=== PATIENT | female | born 1970 | race Caucasian/White ===

== ENCOUNTER 2017-04-25 06:56 | Day surgery (SDC) | payer OTHER ==
[2017-04-25] VITALS (8 sets, daily range): BP systolic 100–110; BP diastolic 6–60; PULSE 59–69; RESP 12–14; O2SAT 93–99
[~2017-04-25] VITALS: Ht 160 cm; Wt 81.6 kg
[~2017-04-25 06:56] MED LIST: ALBU18HF INH; ARIP10TA14 PO; ATEN50TA PO; BUSP15TA3 PO; CITA40TA13 PO; FLUT16SP NS; IBUP200C11 PO; LAMO200T2 PO; LEVO25TA5 PO; LIT150 PO; LOVA40TA PO; NAM10 PO; OMEP20TA86 PO; PRAM0.252 PO
[2017-04-25] MEDS ORDERED: fentaNYL-PF 50 mCg/mL 2 mL Inj ONE (06:57)
[2017-04-25] MEDS ORDERED: EPHEDrine/NS 5 mg/mL 5 mL Syringe ONE (06:57)
[2017-04-25] MEDS ORDERED: Dexamethasone 4 mg/mL Inj ONE (06:57)
[2017-04-25] MEDS ORDERED: Ondansetron 2 mg/mL 2 mL Inj ONE (06:57)
[2017-04-25] MEDS ORDERED: Propofol 10,000 mCg/mL 20 mL Inj ONE (06:57)
[2017-04-25] MEDS: Lactated Ringer's 1,000 ML IV SCH ×2 (07:14→08:00)
[2017-04-25] MEDS ORDERED: HYDROcodone-APAP 7.5-325 mg Tablet PO PRN (07:25)
[2017-04-25] MEDS ORDERED: Lactated Ringer's 500 ML IV PRN (08:46)
[2017-04-25] MEDS ORDERED: Lactated Ringer's 1,000 ML IV SCH (08:46)
--- NOTE | 2017-04-25 08:46 | PCM.HPANE ---
Patient Data Date of Service: Apr 25, 2017 (0844) Surgeon Admitting Provider: Attending Provider:Pedro Niño DO Primary Care Physician:Gloria Genao Other Provider:Anne Marie Montalvo Anesthesia Reason for Visit Left Lateral Epicondylitis Ht/WT & BMI Height (Feet): 5 Height (Inches): 3 Weight (Kilograms): 81.6 Body Mass Index 31.00 Allergies Coded Allergies: meloxicam (Verified Allergy, Severe, anaphalaxis, 04/25/17) Metronidazole HCl (Verified Allergy, Unknown, 08/23/14) carbamazepine (Verified Allergy, Unknown, 08/23/14) erythromycin base (Verified Allergy, Unknown, 08/23/14) metronidazole (Verified Allergy, Unknown, 08/23/14) Past Anesthesia History Anesthesia History: Denies:: Anesthesia Reactions (nausea ), Fam Anesthesia Reaction, Malignant Hyperthermia Diabetes History Hx Diabetes?: No MRSA MRSA: No Medications Home Meds Incl Beta Gabbie: Yes Date Beta Gabbie Taken: Apr 24, 2017 Time Beta Gabbie Taken: 2300 Reported Medications Pramipexole Dihydrochloride (Mirapex)0.25 Mg Tablet0.25 Mg PO HS 04/20/17 Omeprazole 20 Mg Tablet.dr20 Mg PO BID Ref 0 04/20/17 Memantine (Namenda)10 Mg Zxahwk83 Mg PO BID 30 Days Ref 0 04/20/17 Lovastatin 40 Mg Ddojhw05 Mg PO HS #30 TABLET Ref 0 04/20/17 Calpine Carbonate 150 Mg Zpbnhry178 Mg PO DAILY 04/20/17 Levothyroxine 25 Mcg Nznskq36 Mcg PO DAILY Ref 0 04/20/17 Lamotrigine 200 Mg Lzbpju603 Mg PO DAILY Ref 0 04/20/17 Fluticasone Propionate (Fluticasone Propionate Nasal)16 Gm Mina.susp2 Mina NS DAILY PRN For Congestion #16 GM Ref 0 04/20/17 Citalopram 40 Mg Vugomg63 Mg PO DAILY 30 Days Ref 0 04/20/17 Buspirone 15 Mg Dsuwuz93 Mg PO BID Ref 0 04/20/17 Atenolol 50 Mg Odialq34 Mg PO DAILY #30 TABLET Ref 0 04/20/17 Albuterol Sulfate (Ventolin HFA Inhaler)200 Puff/18 Gm Inhaler2 Puff INH Q4 PRN For Wheezing #1 INHALER Ref 0 04/20/17 Ibuprofen (Advil)200 Mg Gkavnpf114 Mg PO PRN For Pain 04/20/17 Aripiprazole (Abilify)10 Mg Busxel73 Mg PO DAILY Ref 0 04/20/17 Discontinued Reported Medications Albuterol Sulfate (Ventolin HFA Inhaler)200 Puff/18 Gm Inhaler2 Puff INH Q4 PRN For Wheezing #1 INHALER Ref 0 04/20/17 Fluticasone Propionate (Flovent HFA 110 mcg)12 Gm Aer.w.adap1 Puff IH BID #12 GM Ref 0 04/20/16 Cholecalciferol (Vitamin D3) (Vitamin D3)5,000 Unit Capsule5,000 Unit PO DAILY 04/18/16 Quetiapine Fumarate ER (Seroquel XR)150 Mg Hnerfr130 Mg PO HS 04/18/16 Pramipexole Dihydrochloride (Mirapex)0.25 Mg Tablet0.25 Mg PO DAILY 04/18/[address] 40 Mg Tablet.dr40 Mg PO BID Ref 0 04/18/16 [mevacor] No Conflict Check40 Mg DAILY 04/18/16 Calpine Carbonate 150 Mg Fieruib066 Mg PO HS 04/18/16 Lamotrigine 200 Mg Qrsdny844 Mg PO HS Ref 0 04/18/16 Ibuprofen 600 Mg Wqfvoe982 Mg PO TID PRN For Pain Ref 0 04/18/16 Citalopram 40 Mg Kujhml22 Mg PO DAILY 30 Days Ref 0 04/18/16 Buspirone 15 Mg Sdostf51 Mg PO BID Ref 0 04/18/16 Atenolol 50 Mg Ojzefd90 Mg PO DAILY #30 TABLET Ref 0 04/18/16 Albuterol Sulfate (Ventolin HFA Inhaler)200 Puff/18 Gm Inhaler2 Puff INH Q4 PRN For Wheezing #1 INHALER Ref 0 04/18/16 History History of ENT Problems?: Yes HEENT History: Positive for:: Hearing Problem Sinus Problem TMJ ("clenches" not grinds) Denies:: Cataracts Denture Type: None Teeth Condition: Broken Teeth Tooth Decay Missing Teeth Other HEENT Pertinent History: tooth extracted 2 days ago- 04/18/17 Hx of Heart Problems?: No Cardiovascular History: Denies:: Abdominal Aortic Aneurism Atrial Fibrillation Cardiac Surgery Congestive Heart Failure Heart Murmur Hypertension Irregular Heartbeat Hx of Respiratory Problem?: Yes Respiratory History: Positive for:: Asthma Use of Inhalers / NEBS Denies:: COPD Cough Dyspnea Emphysema Hemoptysis Oxygen Administration Pneumonia Pulmonary Embolism Tuberculosis Use of C-PAP Machine (sleep study done, no CPAP recommended) Hx Neurologic Problems?: Yes Neurological History: Positive for:: Headaches (almost daily 5/10 right sided - takes atenolol for migraines) Denies:: CVA Multiple Sclerosis Parkinson's Disease Seizures Hx of GI Problems?: Yes Other GI Pertinent History: irritable bowel syndrome with diarrhea Hx of Problems?: No Genitourinary History: Denies:: Kidney Stones Urinary Tract Infection Female Hx: Denies:: Currently (hx hysterectomy) Problems with Breasts? Skin History: Denies:: History Skin Disorders? Pressure Ulcers Hx Musculoskeletal Problems?: Yes Musculoskeletal History: Positive for:: Fibromyalgia Musculoskeletal Trauma (left lateral epicondylitis ) Denies:: Back Injury Joint Replacement Systemic Lupus Hx of Psycho/Social Problems?: Yes Psycho Social History: Positive for:: Anxiety Bipolar Disorder Hx Depression Hx Surgeries?: Yes (knee repair, carpal tunnel, tonsillectomy, hyst, RCR) Hx Any Other Health Problems?: Yes Other History: Positive for:: Cancer (hyst for cervical cancer-dysplasia) Denies:: Thyroid Disease History Blood Transfusions: Positive for:: Accept Blood Products? Denies:: Blood Transfusions Hx Diabetes: No Hx Alcohol Use: NoHx Substance Use: No Smoking Status: Current Every Day Smoker Light Tobacco Smoker Have You Smoked inLast 12 mo: Yes (5-6 cigarettes daily) Stop/Bang S-Snoring: Do You Snore Loudly: No T-Tired: feel tired, fatigued: No O-Obsered: Observed not breath: No P-Blood Pressure: treated: No B- Body Mass Index > 35 kg/m2: No A- Age over 50: No N- Neck Large Circumference: No G- Gender Male: No ALEJANDRO Total Score: 0 ALEJANDRO Risk Assessment: Low Risk, <3 Yes Risk Assessment Category Category 1A: Patient has history of documented sleep apnea, and HAS NOT received any narcotic, sedative or anesthesia administration during this stay. Category 1B: Patient has history of documented sleep apnea, and HAS received any narcotic , sedative or anesthesia administration during this stay Category 2: Patient has SUSPECTED Obstructive Sleep Apnea, and HAS received any narcotic , sedative or anesthesia administration during this stay. Category 3: Patient has SUSPECTED Obstructive Sleep Apnea and HAS NOT received narcotic, sedative or anesthesia administration during this stay. Category 4: Outpatient in Procedural Areas with known sleep apnea or who screen positive for High Risk via the STOP/BANG questionnaire. Exam Exam Vital Signs Vital Signs Date Time Temp Pulse Resp B/P Pulse Ox O2 Delivery O2 Flow Rate FiO2 04/25/17 07:17 36.4 59 14 109/50 95 Room Air General Appearance: Alert HEENT/AIRWAY: MP 1, Other (poor dentition) Lungs: Clear to Auscultation Heart: Exam Unremarkable Meds/Labs/Diagnostics Admission Meds Current Medications Lactated Ringer's (Lr) 1,000 ml @ 120 mls/hr Q8H20M IV Last administered on 07:14; Start 04/25/17 at 05:00; Stop 04/25/17 at 13:19 Scopolamine (Transderm-Scop Patch) 1.5 mg STK-MED ONCE TOPICAL Last administered on 04/25/17 07:52; Start 04/25/17 at 07:39; Stop 04/25/17 at 07:44 ; Status DC Plan Impression Patient chart reviewed, patient interviewed and anesthestic plan with risks, benefits, and alternatives discussed, and informed consent obtained. NPO per Anesth. Guidelines: Yes ASA Physical Status: ASA3 Severe Disease Anesthetic Plan: GA Bene/Risks/Altern/Consents: Yes HP Complete Prior to Induction: Yes Aiden Valadez MD Apr 25, 2017 08:46
[2017-04-25] MEDS ORDERED: HYDROmorphone 1 mg/mL Inj IVPUSH PRN (08:50)
[2017-04-25] MEDS ORDERED: fentaNYL-PF 50 mCg/mL 2 mL Inj IVPUSH PRN (08:50)
[2017-04-25] MEDS ORDERED: EPHEDrine Sulfate 50 mg/mL Inj IVPUSH PRN (08:50)
[2017-04-25] MEDS ORDERED: Albuterol 2.5 mg/3 mL Inhalation Solution NEB PRN (08:50)
[2017-04-25] MEDS ORDERED: Dexamethasone 4 mg/mL Inj IVPUSH PRN (08:50)
[2017-04-25] MEDS ORDERED: Phenylephrine 10,000 mCg/mL Inj IVPUSH PRN (08:50)
[2017-04-25] MEDS ORDERED: Ondansetron 2 mg/mL 2 mL Inj IVPUSH PRN (08:50)
[2017-04-25] MEDS ORDERED: MetoCLOpramide 5 mg/mL 2 mL Inj IVPUSH PRN (08:50)
[2017-04-25] MEDS ORDERED: Lidocaine 1%-Epi 1:100,000 20 mL Inj INFILTRATE ONE (09:38)
--- NOTE | 2017-04-25 09:47 | PCM.ANEP1 ---
Post Anesthesia PACU Phase 1 Assessment Date of Service: Apr 25, 2017 (0947) Vital Signs 100/55, 60, 12, 99%, 37.0 Vital Signs Date Time Temp Pulse Resp B/P Pulse Ox O2 Delivery O2 Flow Rate FiO2 04/25/17 07:17 36.4 59 14 109/50 95 Room Air Anesthetic Administered: GA Level of Alertness: Awake, talking PECK's with Equal Strength: Yes Pain: No Pain Scale Score: 0 Nausea or Vomiting: No CV Function & Hydration Stable: Yes Airway Device: none Lungs: Clear to Auscultation Dermatome Level: Full Sensation Summary uneventful GA PACU Phase 2 Assessment Complications: No Follow up Care: No Patient Instructions Provided: N/A Aiden Valadez MD Apr 25, 2017 09:47
--- NOTE | 2017-04-25 10:31 | OP ---
[address] [address] OPERATIVE REPORT PATIENT: LISA COYLE : 1970 MR#: [id number] ADMIT: 04/25/2017 JOB ID: [id number] DATE OF SURGERY: 04/25/2017 PREOPERATIVE DIAGNOSIS(ES): Left lateral epicondylitis. POSTOPERATIVE DIAGNOSIS(ES): Left lateral epicondylitis. PROCEDURE: Left lateral epicondyle and common extensor tendon debridement. SURGEON: Pedro Niño DO INDUSTRIAL CHEMISTRY TEACHER: Jennifer Saunders, PGY-1 ANESTHESIA: General. BRIEF HISTORY: The patient is a pleasant 46-year-old female with longstanding history of left lateral elbow pain. She failed conservative treatment with bracing, stretching and therapy exercises, as well as an injection that only provided short-term relief. Discussed with the patient the risks, benefits, and indications to proceed with a left lateral epicondylar and common extensor debridement. She understood the risks include, but not limited to, neurovascular injury, tendon injury, infection, failure to resolve the patient's preoperative symptoms, stiffness, persistent pain, all of which may require further intervention. Patient had all her questions answered. Consent was signed and placed in the chart. PROCEDURE IN DETAIL: The patient was brought to the operative suite and placed supine on the operating table. Surgical time-out performed in the room and everyone was in agreement. After appropriate anesthesia was obtained, a left upper arm tourniquet was applied, and the left upper extremity was prepped and draped in a sterile fashion. Left upper extremity was then exsanguinated and tourniquet inflated to 250 mmHg. A short curvilinear incision was made starting at the lateral epicondyle extending distally between the presumed interval between the ECRL and the EDC. Dissection was carried down to the overlying extensor fascia. This was split between the ECRL and the EDC. With elevation, the ECRB tendon was identified, as well as the pathologic tissue. A 15 blade was used to perform a Nirschl scratch test to further identify the pathologic tissue. The pathologic tissue was then excised and disposed of. The lateral epicondyle was further exposed. There were some sharp edges of the lateral epicondyle that were debrided with a rongeur and then utilizing a 0.045 inch K-wire, multiple perforations of the lateral epicondyle were performed. Copious irrigation was then performed followed by closure of the underlying tendinous split with an 0-Vicryl, 3-0 Vicryl for the subcutaneous tissues and a running 4-0 nylon for the skin. The patient was then placed into a bulky dressing and a well-padded well-molded volar resting splint for the immobilization only of the wrist. ESTIMATED BLOOD LOSS: Less than 1 cc. COMPLICATIONS: None. DISPOSITION: The patient tolerated the procedure well. Anesthesia was reversed. The patient was transferred back to recovery. POSTOPERATIVE PLAN: The patient has been instructed in five days to remove the dressing and replace her previous removable wrist brace. She can get the incision wet in the shower at that time and then cover the elbow incision with a large Band-Aid. At her two week followup appointment, we will remove the sutures and initiate her in formal physical therapy to work on elbow range of motion and gentle wrist range of motion and stretching. It will be six weeks postop before starting any strengthening and discontinuing the wrist brace. TRANG
== END 2017-04-25 23:59 | disposition home or self-care (01) ==
LOC: SAS 06:56
PROVIDERS: ATTEND Orthopaedic Surgery
DX: M77.12 Lateral epicondylitis, left elbow (principal); J45.909 Unspecified asthma, uncomplicated; F41.8 Other specified anxiety disorders; G31.84 Mild cognitive impairment of uncertain or unknown etiology; E78.5 Hyperlipidemia, unspecified; G43.909 Migraine, unspecified, not intractable, without status migrainosus; K21.9 Gastro-esophageal reflux disease without esophagitis; Z79.51 Long term (current) use of inhaled steroids
CPT/HCPCS: 24358; J1100; J2250; J2405; J3010; J7120